=== PATIENT | female | born 1995 | race Caucasian/White ===

== ENCOUNTER 2017-01-25 19:41 | Emergency (ER) | payer BC ==
[~2017-01-25] VITALS: Ht 165.1 cm; Wt 72.7 kg
[2017-01-25 19:43] VITALS: TEMP 98.6
[2017-01-25] MEDS ORDERED: PROTONIX20 MG PO (19:46)
[2017-01-25] MEDS ORDERED: NUVARING VAG RING VG (19:47)
[2017-01-25 20:15] LABS: BASO % 0.4 % (0.0-2.0); EOS # 0.1 (0.0-0.7); EOS % 0.8 % (0-4.0); GRAN # 4.7 (1.4-6.5); GRAN % 63.6 % (42.2-75.2); HEMATOCRIT 41.1 % (37.0-47.0); HEMOGLOBIN 13.9 g/dl (12.5-16.0); LYMPH # 2.1 (1.2-3.4); LYMPH % 29.2 % (20.0-51.0); MEAN CELL VOLUME 83 fl (80.0-100.0); MEAN CORPUSCULAR HEMOGLOBIN 28 pg (27.0-31.0); MEAN CORPUSCULAR HGB CONC 34 g/dl (33.0-37.0); MEAN PLATELET VOLUME 11.5 fl (7.4-10.4); MONO # 0.4 (0.1-0.6); MONO % 5.9 % (1.7-9.3); PLATELET COUNT 231 K/mm3 (130-400); RED BLOOD COUNT 4.93 M/mm3 (4.10-5.30); REDCELL DISTRIBUTION WIDTH-CV 12.4 % (11.5-14.5); WHITE BLOOD COUNT 7.3 K/mm3 (4.8-10.8)
[2017-01-25 20:19] LABS: PH 6 (5-8); URINE APPEARANCE Hazy; URINE BACTERIA None Seen /hpf; URINE BILIRUBIN Negative (NEGATIVE); URINE BLOOD Negative (NEGATIVE); URINE COLOR Yellow; URINE GLUCOSE Negative (NEGATIVE); URINE KETONE Negative (NEGATIVE); URINE UROBILINOGEN Negative (NEGATIVE); URINE WBC 0-2 /hpf
[2017-01-25 20:28] LABS: ADJUSTED CALCIUM 9.1 mg/dL (8.4-10.2); ALBUMIN 4.5 gm/dL (3.5-5.0); BILIRUBIN,TOTAL 0.4 mg/dL (0.0-1.0); CALCIUM 9.5 mg/dL (8.4-10.2); CREATININE, serum 0.75 mg/dL (0.52-1.25); POTASSIUM 3.4 mmol/L (3.4-5.0); TOTAL PROTEIN 7.6 gm/dL (6.4-8.2)
[2017-01-25] MEDS ORDERED: PROTONIX 40MG T40 MG PO (21:30)
[2017-01-25 22:15] VITALS: BP 129/93; PULSE 71
== END 2017-01-25 22:15 | disposition home or self-care (01) ==
LOC: COL.ER 19:41
PROVIDERS: Emergency Medicine
DX: R10.13 Epigastric pain (principal); K21.9 Gastro-esophageal reflux disease without esophagitis; Z98.890 Other specified postprocedural states
CPT/HCPCS: J1170; J2405; J7030

== ENCOUNTER 2017-02-09 12:55 | Day surgery (SDC) | payer BC ==
[~2017-02-09] VITALS: Ht 165.1 cm; Wt 77.2 kg
[~2017-02-09 12:55] MED LIST: NUVARING VAG RING VG; PROTONIX 40MG T40 MG PO; PROTONIX20 MG PO
[2017-02-09 13:27] VITALS: BP 123/74; PULSE 78; TEMP 98.2
[2017-02-09 14:27] VITALS: BP 109/71; PULSE 72; TEMP 97.7
[2017-02-09 14:45] VITALS: BP 107/60; PULSE 73
[2017-02-09 15:00] VITALS: BP 102/77; PULSE 72
[2017-02-09 15:15] VITALS: BP 110/79; PULSE 79
[2017-02-09 16:25] VITALS: BP 97/72; PULSE 75
== END 2017-02-09 16:10 | disposition home or self-care (01) ==
LOC: SDCO 12:55
DX: K22.8 Other specified diseases of esophagus (principal); K21.9 Gastro-esophageal reflux disease without esophagitis; K30 Functional dyspepsia; Z87.891 Personal history of nicotine dependence; Z83.49 Family history of other endocrine, nutritional and metabolic diseases
CPT/HCPCS: J2250; J3010; J7030